=== PATIENT | female | born 1980 | race American Indian/Alaskan Native ===

== ENCOUNTER 2018-07-05 00:34 | Emergency (ER) | payer MEDICAID, OTHER ==
[2018-07-05 01:12] LABS: Basophils % (Auto) 0.6 % (0.0-1.8); Eosinophils # (Auto) 0.1 K/mm3 (0.0-0.4); Hematocrit 37.9 % (30.3-42.9); Hemoglobin 12.5 gm/dl (10.1-14.3); Lymphocytes # (Auto) 2.3 K/mm3 (1.2-5.4); Lymphocytes % (Auto) 29.2 % (13.4-35.0); Mean Corpuscular HGB Conc 33 % (30-34); Mean Corpuscular Volume 87 fl (79-97); Monocytes # (Auto) 0.5 K/mm3 (0.0-0.8); Platelet Count 269 K/mm3 (140-440); Red Blood Count 4.37 M/mm3 (3.65-5.03)
[2018-07-05 01:32] LABS: BUN/Creatinine Ratio 19; Blood Urea Nitrogen 17 mg/dL (7-17); Hemolysis Index 9
--- NOTE | 2018-07-05 02:08 | XRay Report ---
PROCEDURE: XR CHEST ROUTINE 2V TECHNIQUE: PA and lateral chest radiographs were obtained. HISTORY: SOB COMPARISONS: None. FINDINGS: Heart: Normal. Mediastinum/Vessels: Normal. Lungs/Pleural space: Normal. Bony thorax: No acute osseous abnormality. IMPRESSION: Normal examination. This document is electronically signed by Joe Mejia MD., July 05 2018 02:06:26 AM ET
[2018-07-05] MEDS ORDERED: PROVENTIL IH ONE (04:11)
[2018-07-05] MEDS ORDERED: IBUPROFEN PO ONE (04:11)
--- NOTE | 2018-07-05 04:42 | Emergency Department Report ---
ED General Adult HPI - General Chief complaint: Dyspnea/Respdistress Stated complaint: SHORTNESS OF BREATH, TINGLING IN HANDS Time Seen by Provider: 07/05/18 03:53 Source: patient Mode of arrival: Ambulatory Limitations: No Limitations - History of Present Illness Initial comments: Patient is a 38-year-old [place]og[place] female who presents for shortness of breath and cough symptoms are intermittent states he left town 2 weeks ago and symptoms exacerbated at that point based denies fevers or chills no nausea vomiting no chest cough there's no abdominal pain no dizziness or lightheadedness symptoms are exacerbated by cough and environmental exposure symptoms are relieved by rest . Onset/Timin -: week(s), unknown (hx of same for last yr ) Location: chest Radiation: non-radiation Severity scale (0 -10): 0 Consistency: intermittent Improves with: none Worsens with: other (environmental exposure ) Associated Symptoms: chest pain (with cough only ), cough Treatments Prior to Arrival: none - Related Data Previous Rx's Medication Instructions Recorded Last Taken Type Ibuprofen [Motrin 800 MG tab] 800 mg PO TID PRN #30 tablet 02/18/15 Unknown Rx HYDROcodone/APAP 5-325 [[place] 1 - 2 each PO Q4HR PRN #30 tablet 04/23/15 Unknown Rx 5/325] ALBUTEROL Inhaler(NF) [VENTOLIN 2 puff IH Q4H PRN #1 inha 07/05/18 Unknown Rx Inhaler(NF)] Benzonatate [Tessalon Perles] 100 mg PO Q8HR #30 capsule 07/05/18 Unknown Rx Ibuprofen 800 mg PO TID PRN #30 tablet 07/05/18 Unknown Rx predniSONE [Deltasone] 40 mg PO QDAY 5 Days #10 tab 07/05/18 Unknown Rx Allergies Allergy/AdvReac Type Severity Reaction Status Date / Time Latex, Natural Rubber Allergy Itching Verified 02/10/15 21:10 sulfamethoxazole AdvReac Itching Verified 02/10/15 21:07 [From Bactrim] trimethoprim [From Bactrim] AdvReac Itching Verified 02/10/15 21:07 ED Review of Systems ROS: Stated complaint: SHORTNESS OF BREATH, TINGLING IN HANDS Other details as noted in HPI Constitutional: denies: chills, fever Eyes: denies: eye pain, eye discharge, vision change ENT: congestion Respiratory: cough, shortness of breath Cardiovascular: chest pain. denies: palpitations Endocrine: no symptoms reported Gastrointestinal: denies: abdominal pain, nausea, diarrhea Genitourinary: denies: urgency, dysuria, discharge Musculoskeletal: denies: back pain, joint swelling, arthralgia Skin: denies: rash, lesions Neurological: denies: headache, weakness, paresthesias Psychiatric: denies: anxiety, depression Hematological/Lymphatic: denies: easy bleeding, easy bruising ED Past Medical Hx - Past Medical History Previous Medical History?: Yes Hx Hypertension: Yes (PIH) Hx Congestive Heart Failure: No Hx Diabetes: No Hx Deep Vein Thrombosis: No Hx Renal Disease: No Hx Sickle Cell Disease: No Hx Seizures: No Hx Asthma: No Hx COPD: No Hx HIV: No - Surgical History Past Surgical History?: No - Social History Smoking Status: Never Smoker Substance Use Type: None - Medications Home Medications: Home Medications Medication Instructions Recorded Confirmed Last Taken Type Ibuprofen [Motrin 800 MG tab] 800 mg PO TID PRN #30 tablet 02/18/15 04/21/15 Unknown Rx HYDROcodone/APAP 5-325 [[place] 1 - 2 each PO Q4HR PRN #30 tablet 04/23/15 Unknown Rx 5/325] ALBUTEROL Inhaler(NF) [VENTOLIN 2 puff IH Q4H PRN #1 inha 07/05/18 Unknown Rx Inhaler(NF)] Benzonatate [Tessalon Perles] 100 mg PO Q8HR #30 capsule 07/05/18 Unknown Rx Ibuprofen 800 mg PO TID PRN #30 tablet 07/05/18 Unknown Rx predniSONE [Deltasone] 40 mg PO QDAY 5 Days #10 tab 07/05/18 Unknown Rx ED Physical Exam - General Limitations: No Limitations General appearance: alert, in no apparent distress - Head Head exam: Present: atraumatic, normocephalic - Eye Eye exam: Present: normal appearance, PERRL, EOMI Pupils: Present: normal accommodation - ENT ENT exam: Present: mucous membranes moist, TM's normal bilaterally, normal external ear exam - Expanded ENT Exam Expanded Ear exam: Present: normal external inspection Mouth exam: Absent: trismus Teeth exam: Present: normal inspection Throat exam: Positive: tonsillar erythema, tonsillomegaly, other (moderate erythema uvula midline no exudate no lesion no stridor airway is patent). Negative: tonsillar exudate, R peritonsillar mass, L peritonsillar mass - Neck Neck exam: Present: normal inspection, full ROM. Absent: tenderness, meningismus, lymphadenopathy, thyromegaly - Respiratory Respiratory exam: Present: normal lung sounds bilaterally, chest wall tenderness. Absent: respiratory distress, wheezes, stridor (right lateral chest wall tenderness to deep palpation) - Cardiovascular Cardiovascular Exam: Present: regular rate, normal rhythm, normal heart sounds. Absent: systolic murmur, diastolic murmur, rubs, gallop - GI/Abdominal GI/Abdominal exam: Present: soft, normal bowel sounds. Absent: distended, tenderness, rebound, bruit, hernia - Rectal Rectal exam: Present: deferred - Extremities Exam Extremities exam: Present: normal inspection, full ROM, normal capillary refill. Absent: tenderness, pedal edema, joint swelling, calf tenderness - Back Exam Back exam: Present: normal inspection, full ROM, tenderness. Absent: CVA tenderness (R), CVA tenderness (L), muscle spasm, paraspinal tenderness, vertebr al tenderness, rash noted - Neurological Exam Neurological exam: Present: alert, oriented X3, CN II-XII intact, normal gait, reflexes normal - Psychiatric Psychiatric exam: Present: normal affect, normal mood - Skin Skin exam: Present: warm, dry, intact, normal color. Absent: rash ED Course Vital Signs 07/05/18 00:40 Temperature 98.3 F Pulse Rate 84 Respiratory 18 Rate Blood Pressure 131/72 O2 Sat by Pulse 99 Oximetry ED Medical Decision Making - Lab Data Result diagrams: 07/05/18 00:56 07/05/18 00:56 Labs 07/05/18 07/05/18 00:56 00:56 WBC 7.9 RBC 4.37 Hgb 12.5 Hct 37.9 MCV 87 MCH 29 MCHC 33 RDW 14.0 Plt Count 269 Lymph % (Auto) 29.2 [place] % (Auto) 6.0 Eos % (Auto) 1.0 Baso % (Auto) 0.6 Lymph # 2.3 [place] # 0.5 Eos # 0.1 Baso # 0.0 Seg Neutrophils % 63.2 Seg Neutrophils # 5.0 Sodium 141 Potassium 3.8 Chloride 103.7 Carbon Dioxide 25 Anion Gap 16 BUN 17 Creatinine 0.9 Estimated GFR > 60 BUN/Creatinine Ratio 19 Glucose 96 Calcium 9.0 - EKG Data EKG shows normal: sinus rhythm, axis, intervals, QRS complexes, ST-T waves Rate: normal - EKG Data When compared to previous EKG there are: other (no previous ekg in system ) Interpretation: normal EKG - Radiology Data Radiology results: report reviewed, image reviewed (vital) Referring Physician: KANWAL KYLE Patient Name: JAGUAR BURNHAM Date of : 1980 Sex: Female Report Date: 2018-07-05 Report Status: Finalized Findings [facility] [address] [place] [address] XRay Report Signed Patient: JAGUAR BURNHAM MR#: [id number] : 1980 Acct:[id number] Age/Sex: 38 / F ADM Date: 07/05/18 Loc: ED Attending Dr: Ordering Physician: KANWAL KYLE MD Date of Service: 07/05/18 Procedure(s): XR chest routine 2V Accession Number(s): [id number] cc: KANWAL KYLE MD Fluoro Time In Minutes: PROCEDURE: XR CHEST ROUTINE 2V TECHNIQUE: PA and lateral chest radiographs were obtained. HISTORY: SOB COMPARISONS: None. FINDINGS: Heart: Normal. Mediastinum/Vessels: Normal. Lungs/Pleural space: Normal. Bony thorax: No acute osseous abnormality. IMPRESSION: Normal examination. This document is electronically signed by Aldo Horton MD., July 05 2018 02:06:26 AM ET Transcribed By: CO Dictated By: ALDO HORTON MD Electronically Authenticated By: ALDO HORTON MD Signed Date/Time: 07/05/18 0208 DD/ 0044 TD/TT: 07/05/18 0106 - Medical Decision Making pt is a 38 y/o aaf who presents for cough and cp with cough for past year states symptoms exacerbate over past 2 weeks when she went on vacation out of town, pt states cough production is clear white, there is no fever or chills cough preventing sleep at night. pt states some wheezing intermittently. there is no n/v no back pain no diaphoresis no activity intolerance Critical care attestation.: If time is entered above; I have spent that time in minutes in the direct care of this critically ill patient, excluding procedure time. ED Disposition Clinical Impression: Cough, Chest wall pain Upper respiratory infection Qualifiers: URI type: unspecified viral URI Qualified Code(s): J06.9 - Acute upper respiratory infection, unspecified Disposition: DC- TO HOME OR SELFCARE Is pt being admited?: No Does the pt Need Aspirin: No Condition: Stable Instructions: Costochondritis (ED), Upper Respiratory Infection (ED) Prescriptions: predniSONE [Deltasone] 40 mg PO QDAY 5 Days #10 tab Ibuprofen 800 mg PO TID PRN #30 tablet PRN Reason: pain Benzonatate [Tessalon Perles] 100 mg PO Q8HR #30 capsule ALBUTEROL Inhaler(NF) [VENTOLIN Inhaler(NF)] 2 puff IH Q4H PRN #1 inha PRN Reason: shortness of breath wheezing [facility] - [facility]-5 Days Forms: Work/School Release Form(ED) Time of Disposition: 04:58
[2018-07-05 05:01] VITALS: BP 117/68
== END 2018-07-05 05:05 | disposition home or self-care (01) ==
LOC: ED 00:34
DX: J06.9 Acute upper respiratory infection, unspecified (principal); I10 Essential (primary) hypertension; Z91.040 Latex allergy status; Z88.2 Allergy status to sulfonamides
CPT/HCPCS: 36415; 71046; 80048; 85025; 93005; 93010; 94640

== ENCOUNTER 2021-08-23 14:02 | Emergency (ER) | payer MEDICAID | END 2021-08-23 15:45 | disposition left against medical advice (07) | LOC: ED 14:02 | DX: R10.9 Unspecified abdominal pain (principal); Z53.21 Procedure and treatment not carried out due to patient leaving prior to being seen by health care provider ==